=== PATIENT | male | born 1975 | race Native Hawaiian/Other Pacific Islander ===

== ENCOUNTER 2016-10-22 19:58 | Emergency (ER) | payer OTHER ==
[~2016-10-22] VITALS: Ht 177.8 cm; Wt 83.9 kg
== END 2016-10-22 22:27 | disposition home or self-care (01) ==
LOC: ED 19:58
DX: L02.01 Cutaneous abscess of face (principal); J20.9 Acute bronchitis, unspecified
CPT/HCPCS: 94664; 99283

== ENCOUNTER 2021-05-28 18:11 | Emergency (ER) | payer OTHER ==
[~2021-05-28] VITALS: Ht 177.8 cm; Wt 74.8 kg
[2021-05-28 19:15] LABS: PLATELET COUNT 227 K/uL (142-355)
[2021-05-28 19:21] LABS: POTASSIUM 4.1 mmol/L (3.6-5.2)
[2021-05-28 19:28] LABS: PARTIAL THROMBOPLASTIN TIME 26.2 SECONDS (24.5-33.6)
[2021-05-28 19:45] VITALS: BP 105/63; TEMP 98.4
== END 2021-05-28 19:45 | disposition home or self-care (01) ==
LOC: ED 18:11
PROVIDERS: Hospitalist
DX: D69.3 Immune thrombocytopenic purpura (principal); N18.9 Chronic kidney disease, unspecified; Z98.890 Other specified postprocedural states
CPT/HCPCS: 36415; 80053; 85027; 85610; 85730; 96372; 99283; J1100; J1200